=== PATIENT | female | born 1940 | race Caucasian/White ===

== ENCOUNTER 2016-04-30 14:33 | Inpatient (IN) | payer MEDICARE ==
[~2016-04-30] VITALS: Ht 167.6 cm; Wt 66.4 kg
[~2016-04-30 14:33] MED LIST: CHLORTHALIDONE25 MG PO; COZAAR DPS50 MG PO; ELAVIL-DPS10 MG PO; HYDROCODON-ACE1 EAC2 PO; IBUPROFEN200 MG PO; MUCINEX600 MG PO; NORVASC5 MG PO; SINGULAIR10 MG PO; TENORMIN-DPS25 MG PO; TUDORZA PRESS400 MCG IH; TUMS DPS500 MG PO
--- NOTE | 2016-05-01 07:29 | CO ---
ADMIT: 04/30/2016 RM/LOC: 524 [facility] MR#: [id number] [address] [address] [facility], CHRIS Marshall [address] [place] [address] Consultation SEX: F AGE: 75 : 1940 DATE OF CONSULTATION: 04/30/2016 ATTENDING PHYSICIAN: Rossi Pink CONSULTING PHYSICIAN: Fran Anne MD CHIEF COMPLAINT: Left hip pain. HISTORY OF PRESENT ILLNESS: A 75-year-old female, fall from standing today after she kind of fell off a stool, landing on the left hip, was unable to bear weight or ambulate after that, came into the ER. X-rays confirmed left hip fracture. She complains of pain in that hip and no other issues. No head trauma. REVIEW OF SYSTEMS: Otherwise negative. PAST MEDICAL HISTORY: History of cancer. Otherwise, noncontributory. PHYSICAL EXAMINATION: GENERAL: She is awake, alert and oriented, in no acute distress. VITAL SIGNS: Afebrile. Vital signs are stable. EXTREMITIES: Left foot, she has positive EHL and FHL. Positive DP pulse. Sensation intact to light touch. Brisk capillary refill. Shortened and externally rotated left leg. X-RAYS: She has left IP fracture of the hip. PLAN: We will have her admitted to the medical service and then, I will plan on taking her to the OR in the morning for a trochanteric fixation nailing. Fran Anne MD/ jesusital JOB #: [id number] CC: Rossi Pink, Attending Physician Rossi Pink, Family Physician
--- NOTE | 2016-05-01 13:34 | HP ---
ADMIT: 04/30/2016 RM/LOC: 524 [facility] MR#: [id number] [facility]#: [id number] [address] [address] [facility], CHRIS Marshall [address] [place] [id number] History and Physical SEX: F AGE: 75 : 1940 DATE OF SERVICE: CHIEF COMPLAINT: Left hip pain. HISTORY OF PRESENT ILLNESS: This is a 75-year-old female, she was sitting down on her stool in her kitchen when she kind of missed the stool, fell onto her left side, immediately had severe pain in her left hip. She was brought to emergency room where she was found to have left hip fracture. She is planned for a left hip nailing tomorrow. Otherwise, she reports she has been feeling well. Denies passing out. No other injuries she can tell me right now. They did give her some Fentanyl, and she has been a little bit sleepy and needed a lot of oxygen since that time. Otherwise, she feels well. She is disappointed with the fact that she has a hip fracture. PAST MEDICAL HISTORY: Includes osteoarthritis of the knees; lung cancer, status post resection; chronic neck pain; hyperlipidemia; hypertension; history of iritis; nicotine dependence; osteoarthritis diffusely; chronic back pain; vitamin D deficiency; osteopenia. PAST SURGICAL HISTORY: Include a spinal fusion, hysterectomy. Surgeries also include tonsillectomy and eye surgery. She has also had arthrocentesis of her joints. ALLERGIES: CECLOR, PENICILLIN, KARLEY INHIBITOR, CODEINE, HYDROCHLOROTHIAZIDE. FAMILY HISTORY: Significant for COPD and heart disease. SOCIAL HISTORY: She does currently smoke. MEDICATIONS: 1. Tizanidine 4 mg q.8 hours p.r.n. 2. Mucinex-D p.r.n. 3. Singulair 10 mg daily. 4. Losartan 50 mg daily. 5. Ibuprofen 400 mg p.r.n. 6. Vitamin D 5000 units three times a week. 7. Chlorothiazide 25 mg half tab daily p.r.n. 8. Calcium carbonate 750 mg one tablet p.r.n. 9. Atenolol 25 mg daily. 10.Amlodipine 2.5 mg daily. 11.Amitriptyline 10 mg two to three tablets at bedtime. 12.DuoNebs inhaled p.r.n. 13.Stiolto 2 puffs daily. 14.Tylenol p.r.n. REVIEW OF SYSTEMS: Other complete review of systems obtained and negative except as above. PHYSICAL EXAMINATION: VITAL SIGNS: Temperature 98.2, pulse 92, respirations ADMIT: 04/30/2016 RM/LOC: 524 [facility] MR#: [id number] [address] [address] [facility] [place], [place] [address] History and Physical SEX: F AGE: 75 : 1940 18, blood pressure 156/79, oxygen saturation 94% on 2 L of oxygen by nasal cannula. GENERAL: A well-appearing 75-year-old female. She is in no apparent distress. She is alert and oriented. She is wearing glasses. HEENT: Pupils are equal, round, and reactive to light and accommodation. Extraocular muscles are intact. Her throat is clear. Mouth is dry. Small abrasion on left side of soft palate. Head is normocephalic, atraumatic. NECK: Supple. Trachea midline. HEART: Regular rate and rhythm. LUNGS: Diminished bilaterally. No crackles or wheezes. ABDOMEN: Soft, without any tenderness. EXTREMITIES: Lower extremities, left lower extremity is externally rotated and shortened. Trace lower extremity edema bilaterally. She move all her extremities equally bilaterally. IMAGING: X-ray shows left, looks like, intertrochanteric hip fracture. LABORATORY DATA: Otherwise, labs reviewed and okay. ASSESSMENT: 1. Left hip fracture. 2. Hypertension. 3. Chronic obstructive pulmonary disease. 4. History of lobectomy for lung cancer. 5. Osteopenia. PLAN: She is admitted to the hospital. We will do post-hip fracture orders postoperatively. We will do anticoagulation to prevent VTE and continue on her medicines for blood pressure, minus her losartan at the current time. We will continue her atenolol and Norvasc for now. Also, continue her Stiolto Respimat inhaler. Sean Weaver MD/ hannah JOB #: [id number] CC: Rossi Pink, Attending Physician Rossi Pink, Family Physician
--- NOTE | 2016-05-03 17:50 | ER ---
ADMIT: 04/30/2016 RM/LOC: 524 [facility] MR#: [id number] [address] [address] [facility] [address] [place] [address] Emergency Room Report SEX: F AGE: 75 : 1940 DATE: 04/30/2016 This patient comes into the ER because she was sitting on a stool when she lost her balance and fell off, landing on her left hip. She has a left intertrochanteric fracture. Her CBC is normal. She is not on blood thinners. No other injuries. I spoke with Dr. Anne, he came in and examined the patient and also with Dr. Weaver, who was on-call for Dr. Pink. Please see my T-sheet and their dictation for further treatment. HAM Victor / Román Gastelum MD / hannah JOB #: [id number] CC: Rossi Pink MD, Attending Physician Rossi Pink MD, Family Physician
--- NOTE | 2016-05-04 08:09 | OR ---
ADMIT: 04/30/2016 RM/LOC: 524 [facility] MR#: [id number] [address] [address] [facility], CHRIS Marshall [address] [place] [address] Operative/Delivery Room Report SEX: F AGE: 75 : 1940 SURGERY DATE: 05/01/2016 SURGEON: Fran Anne MD OIL PIPELINE DISPATCHER: HAM Christiansen. PREOPERATIVE DIAGNOSIS: Left intertrochanteric hip fracture. POSTOPERATIVE DIAGNOSIS: Left intertrochanteric hip fracture. PROCEDURE: Left trochanteric fixation nailing. IMPLANTS: Synthes long TFN with one distal interlock in the screw. COMPLICATIONS: None. BLOOD LOSS: About 100. INDICATION: This 75-year-old female fell from standing fall. It was a mechanical fall yesterday, suffering a left hip fracture. After admitted and cleared for surgery, discussed with her and she wanted to go ahead with fixation so she is here for that today. DESCRIPTION OF PROCEDURE: The patient was identified in the preoperative holding area. Written and informed consent was confirmed, site was marked, brought to the OR, placed supine, anesthesia was induced, and she was placed on the fracture table, left leg in the boot, right in the semi-lithotomy position. Brought x-ray in and got everything lined up real nice so it reduced and then prepped and draped in the usual sterile fashion. A time-out was performed. Preop antibiotics were confirmed. I made an incision proximal to the trochanter about 2 cm in length. Brought our guide pin in, reamed over that, placed a short nail down, put a helical blade in, and then went to drill for the distal interlock screw. Once I had drilled for that and noticed there appeared to be a fracture line extending from the tip of the nail distally. It kind of same through what looked like did not exit the lateral cortex, but ADMIT: 04/30/2016 RM/LOC: 524 [facility] MR#: [id number] 2620 [facility] [address] [place] [address] [facility], CHRIS Rosas [facility] [place] [address] Operative/Delivery Room Report SEX: F AGE: 75 : 1940 it was evident there, so we went ahead and removed the helical blade, removed the short nail, placed a long guidewire down, and reamed down to 12-1/2 and then placed a .380 size 11 nail down and then kind of put the guide for where the helical blade was up and then placed the hip screw in there. Put a little bit of compression on it and then locked that down. After this was done, came down for perfect [place] technique, down to the knee and placed one interlock screw in there. So we actually ended up wasting two TFN nails and a helical blade. We then went ahead and irrigated then closed all the wounds with 2-0 Vicryl for the deep layer and then magno for the skin, and then extubated her, brought her to the Postop Care Unit in good condition. No complications. Postoperatively, we will keep her toe-touch weightbearing on that left lower extremity and continue with pain control. Fran Anne MD/ klever JOB #: [id number] CC: Rossi Pink, Attending Physician Rossi Pink, Family Physician
[2016-05-06] MEDS ORDERED: ELIQUIS2.5 MG PO (12:26)
[2016-05-06] MEDS ORDERED: SENOKOT S1 TAB PO (12:26)
[2016-05-06] MEDS ORDERED: MILK OF MAGNESI10 ML PO (12:26)
[2016-05-06] MEDS ORDERED: MONTELUKAST SOD10 MG PO (12:27)
[2016-05-06] MEDS ORDERED: SURFAK DPS240 MG PO (13:35)
[2016-05-06] MEDS ORDERED: TYLENOL DPS325 MG PO (13:35)
[2016-05-06] MEDS ORDERED: SPIRIVA18 MCG IH (13:35)
[2016-05-06] MEDS ORDERED: BROVANA15 MCG/2 M IH (13:35)
[2016-05-06] MEDS ORDERED: MAALOX DPS30 ML PO (13:35)
[2016-05-06] MEDS ORDERED: DULCOLAX-DPS10 MG PR (13:36)
[2016-05-06] MEDS ORDERED: PROVENTIL2.5 MG/3 M IH (13:36)
[2016-05-06] MEDS ORDERED: ENEMA READY TO133 ML PR (13:37)
[2016-05-06] MEDS ORDERED: NASAL SALINE NS (13:42)
--- NOTE | 2016-05-31 09:43 | DS ---
ADMIT: 04/30/2016 RM/LOC: 524 [facility] MR#: [id number] [address] [address] [facility] [place] [address] Discharge Summary SEX: F AGE: 75 : 1940 ADMISSION DATE: 04/30/2016 DISCHARGE DATE: 05/04/2016 DISCHARGE DIAGNOSES: 1. Fall. 2. Left hip displaced intertrochanteric fracture of the femur. 3. Pleural effusion. 4. Hypertension. 5. COPD (chronic obstructive pulmonary disease). 6. Acute blood loss anemia. 7. Urinary retention. 8. Constipation. 9. Bilateral knee OA (osteoarthritis) of the knee. 10.Chronic neck pain. 11.Nicotine dependence. 12.History of lung cancer. 13.Hyperlipidemia. 14.Chronic pain. 15.Hypertension. 16.Vitamin D deficiency. 17.Osteoporosis. HOSPITAL COURSE: The patient was admitted after a fall with a displaced intertrochanteric fracture. She was seen by Ortho who did take her to the OR on 05/01/2016 and did do a repair of her intertrochanteric hip fracture. The patient did tolerate this. Postop she was noted to have increasing O2 requirements. Did have a large pleural effusion which is not new for her, but did seem to be increased. They were contemplating doing a thoracentesis however she was on blood thinner for her postop hip fracture course. Overall, the patient's oxygen requirement was pretty stable so the feeling was she could stay just on oxygen and not have her pleural effusion tapped. The plan was she was already scheduled as an outpatient to be seen by pulmonology. Overall, the patient was quite stable. She did have some iron deficiency anemia and received some IV iron. The plan was for the patient to be discharged to [facility]. DISCHARGE MEDICATIONS: ADMIT: 04/30/2016 RM/LOC: 524 [facility] MR#: [id number] [address] [facility] [address] [place] [id number] [facility] [place], [place] [id number] Discharge Summary SEX: F AGE: 75 : 1940 1. Elavil 10 mg p.o. at bedtime. 2. 2.5 p.o. b.i.d. 3. Milk of Mag daily. 4. Senna p.o. b.i.d. 5. Singulair 10 mg p.o. daily. 6. Stiolto Respimat daily. 7. Hydrocodone 7.5 p.o. b.i.d. 8. Atenolol 25 mg p.o. daily. 9. Hydrocodone 7.5 p.o. q.4 hours p.r.n. FOLLOWUP: Follow up with Dr. Rossi Pink in 10-14 days. Get a CBC on Monday. Have O2 p.r.n. sats less than 90. Rossi Pink MD/ vdg JOB #: [id number] CC: Rossi Pink MD, Attending Physician Rossi Pink MD, Family Physician
== END 2016-05-04 14:15 | DRG 481 ==
LOC: ER 14:33 → 5MS 16:48
PROVIDERS: ADMIT Internal Medicine
PROC: 0QS736Z Reposition Left Upper Femur with Intramedullary Internal Fixation Device, Percutaneous Approach (ICD-10-PCS; principal; 2016-05-01)
DX: S72.142A Displaced intertrochanteric fracture of left femur, initial encounter for closed fracture (principal); J90 Pleural effusion, not elsewhere classified; I95.9 Hypotension, unspecified; J44.9 Chronic obstructive pulmonary disease, unspecified; D62 Acute posthemorrhagic anemia; I10 Essential (primary) hypertension; R33.9 Retention of urine, unspecified; K59.00 Constipation, unspecified; W08.XXXA Fall from other furniture, initial encounter; M17.0 Bilateral primary osteoarthritis of knee; M54.2 Cervicalgia; F17.210 Nicotine dependence, cigarettes, uncomplicated; G89.29 Other chronic pain; E78.5 Hyperlipidemia, unspecified; E55.9 Vitamin D deficiency, unspecified; M85.80 Other specified disorders of bone density and structure, unspecified site; Z98.1 Arthrodesis status; Z85.118 Personal history of other malignant neoplasm of bronchus and lung

== ENCOUNTER → 2016-05-30 | Outpatient (CLI) | payer OTHER, MEDICARE ==
[~2016-05-30] MED LIST changes: +BROVANA15 MCG/2 M IH; +DULCOLAX-DPS10 MG PR; +ELIQUIS2.5 MG PO; +ENEMA READY TO133 ML PR; +MAALOX DPS30 ML PO; +MILK OF MAGNESI10 ML PO; +MONTELUKAST SOD10 MG PO; +NASAL SALINE NS; +PROVENTIL2.5 MG/3 M IH; +SENOKOT S1 TAB PO; +SPIRIVA18 MCG IH; +SURFAK DPS240 MG PO; +TYLENOL DPS325 MG PO
== END | disposition home or self-care (01) ==
LOC: RAD.S 05-11 10:00
DX: J90 Pleural effusion, not elsewhere classified (principal); J98.11 Atelectasis; R91.8 Other nonspecific abnormal finding of lung field

== ENCOUNTER → 2016-08-16 | Outpatient (CLI) | payer MEDICARE | END | disposition home or self-care (01) | LOC: RAD.S 13:00 | DX: C34.12 Malignant neoplasm of upper lobe, left bronchus or lung (principal); I10 Essential (primary) hypertension ==